=== PATIENT | female | born 1965 | race African-American/Black ===

== ENCOUNTER 2019-02-08 02:04 | Emergency (ER) | payer OTHER ==
[~2019-02-08] VITALS: Ht 160 cm; Wt 63.5 kg
[2019-02-08] MEDS ORDERED: METFORMIN HCL500 M1 ORAL (02:12)
--- NOTE | 2019-02-08 02:20 | NUR ---
ED Nurse Note: Patient presents as a walki-in with complaints of injury to right shoulder via turning a patient with pain radiation to the neck.
[2019-02-08 02:22] VITALS: BP 112/77
[2019-02-08] MEDS ORDERED: IBUPROFEN600 MG ORAL (02:27)
--- NOTE | 2019-02-08 02:29 | Emergency Room Report ---
History of Present Illness General Chief Complaint: Upper Extremity Injury Source: Patient Present Illness HPI This is a 53-year-old female who is right-hand dominant. 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 She presents with chief complaint of right shoulder pain. She was helping the nurse moving the patient. She said the of the patient fell onto her right shoulder. She complained of right shoulder pain. Pain of right shoulder pain. Worse with movement. Pain is 7 out of 10. Does not want any medication. No nausea no vomiting. Denies any other complaint. Allergies: Coded Allergies: AMPICILLIN (Verified Allergy, Unknown, 02/08/19) Patient History Past Medical History: see triage record, old chart reviewed Past Surgical History: none Pertinent Family History: none Social History: Denies: smoking Now: No Immunizations: other Reviewed Nursing Documentation: PMH: Agreed; PSxH: Agreed Nursing Documentation-PMH Past Medical History: No History, Except For Hx Diabetes: Yes Review of Systems Eye: Denies: eye pain, blurred vision ENT: Denies: ear pain, nose congestion, throat swelling Respiratory: Denies: cough, shortness of breath Cardiovascular: Denies: chest pain, palpitations Gastrointestinal: Denies: abdominal pain, diarrhea, nausea, vomiting Musculoskeletal: Reports: joint pain; Denies: back pain Skin: Denies: rash Neurological: Denies: headache, numbness Endocrine: Denies: increased thirst, increased urine Hematologic/Lymphatic: Denies: easy bruising All Other Systems: negative except mentioned in HPI Physical Exam Vital Signs Date Time Temp Pulse Resp B/P (MAP) Pulse Ox O2 Delivery O2 Flow Rate FiO2 02/08/19 02:06 97.9 86 14 112/77 (89) 95 Room Air Vitals normal Sp02 EP Interpretation: reviewed, normal General Appearance: well appearing, no apparent distress, alert Head: normocephalic, atraumatic Eyes: bilateral eye PERRL, bilateral eye EOMI ENT: hearing grossly normal, normal pharynx Neck: full range of motion, supple, no meningismus Respiratory: chest non-tender, lungs clear, normal breath sounds Cardiovascular #1: regular rate, rhythm, no murmur Gastrointestinal: normal bowel sounds, non tender, no mass, no organomegaly, no bruit, non-distended Musculoskeletal: back normal, gait/station normal, normal range of motion, tender - Diffuse tenderness anteriorly over the right shoulder. Full range of motion however. No deformity. Sensation normal. Psychiatric: mood/affect normal Medical Decision Making Diagnostic Impression: Primary Impression: Sprain of shoulder, right Qualified Codes: S43.401A - Unspecified sprain of right shoulder joint, initial encounter ER Course Strain with right shoulder sprain. No fracture dislocation. Will discharge home. Other X-Ray Diagnostic Results Other X-Ray Diagnostic Results : X-Ray ordered: X-ray right shoulders # of Views/Limited Vs Complete: 3 View Indication: Pain EP Interpretation: Yes Interpretation: no dislocation, no soft tissue swelling, no fractures Impression: No acute disease Electronically Signed by: Slava Lowery MD Last Vital Signs Date Time Temp Pulse Resp B/P (MAP) Pulse Ox O2 Delivery O2 Flow Rate FiO2 02/08/19 02:06 97.9 86 14 112/77 (89) 95 Room Air Status: improved Disposition: HOME, SELF-CARE Condition: Stable Scripts Ibuprofen* (MOTRIN*) 600 Mg Tablet 600 MG ORAL THREE TIMES A DAY, #30 TAB 0 Refills Prov: Slava Lowery MD 02/08/19 Additional Instructions: Is packed to affected area. Follow-up with Employee health in 2 days. Return if worse. Slava Lowery MD Feb 08, 2019 02:29
[2019-02-08 02:34] VITALS: BP 112/77
--- NOTE | 2019-02-08 02:35 | NUR ---
ED Nurse Note: Pt cleared by health care Provider for discharge. DC instructions/prescription was given and explained to pt and verbalized understanding of teachings. All medical deviecs such as ID band removed. Pt is AAO x4, ambulatory and left with all personal belongings.
--- NOTE | 2019-02-08 02:58 | Diagnostic Imaging Report ---
EXAM: XR Right Shoulder Complete, 2 or More Views CLINICAL HISTORY: TRAUMA TECHNIQUE: Two or more views of the right shoulder. COMPARISON: No relevant prior studies available. FINDINGS: Bones/joints: Unremarkable. No acute fracture. No dislocation. Soft tissues: Unremarkable. IMPRESSION: No acute bony abnormality.
== END 2019-02-08 02:37 | disposition home or self-care (01) ==
LOC: EMR 02:29
DX: S43.401A Unspecified sprain of right shoulder joint, initial encounter (principal); W50.0XXA Accidental hit or strike by another person, initial encounter; Y92.9 Unspecified place or not applicable; Y99.0 Civilian activity done for income or pay; Z88.0 Allergy status to penicillin; E11.9 Type 2 diabetes mellitus without complications
CPT/HCPCS: 99283